=== PATIENT | male | born 2000 | race Two or more races ===

== ENCOUNTER 2019-05-06 21:15 | Emergency (ER) | payer MEDICAID ==
[~2019-05-06] VITALS: Ht 175.3 cm; Wt 81.6 kg
[2019-05-07 00:22] VITALS: BP 133/89
== END 2019-05-07 03:29 | disposition home or self-care (01) ==
LOC: ER 21:19
DX: G44.209 Tension-type headache, unspecified, not intractable (principal); R42 Dizziness and giddiness; Z90.49 Acquired absence of other specified parts of digestive tract
CPT/HCPCS: 70450